=== PATIENT | female | born 1950 | race Caucasian/White ===

== ENCOUNTER → 2016-11-29 | Outpatient (CLI) | payer OTHER ==
[~2016-11-29] MED LIST: CEFAZOLIN 2 GM/DEXTROSE/100 ML BAG IV ONE
--- NOTE | 2016-11-29 22:13 | DX ---
DEXA Bone Mineral Densitometry Clinical Indications: Previous osteopenia, on thyroid medication, with history of left wrist fractur e. Technique: Bone Mineral Densitometry (BMD) by Dual Energy X-Ray Absorptiometry (DEXA) was performed utilizing the Stockpile scanner. The lumbar spine was evaluated in the AP projection. Both hips and the right forearm were evaluated in the AP projection. Images were reviewed for spinal fracture . AP Lumbar Spine: Vertebral bodies of L1, L2, L3, and L4 were assessed. BMD: 1.048 gm/cm2. T-score: -1.2 SD. Z-score: 0.2 SD. This represents a change of -3.8% compared to 2013. AP Left Hip: Neck BMD: 0.845 gm/cm2. T-score: -1.4 SD. Z-score: 0.1 SD. This is a change of -0.8% compared to 2013. AP Right Hip: Neck BMD: 0.903 gm/cm2. T-score: -1.0 SD. Z-score: 0.5 SD. This is a change of -2.8% compared to 2013. AP Right Forearm, 11/23: BMD: 0.850 gm/cm2. T-score: -0.3 SD. Z-score: 1.4 SD. This is a change of +1.1% compared to 2013. Vertebral Fracture Assessment: No significant fracture deformity. Conclusion: Considering the lowest measured site, the patient is osteopenic. The ten year risk for any major osteoporotic fracture is 15% and for a hip fracture is 1.8%. Any bone loss in this patient is probably related to aging or estrogen deficiency. To prevent osteop orosis and to promote bone density, consider the following recommendations: 1. Pursue a regular regimen of weightbearing and muscle strengthening exercises in order to reduce t he risk of falls and fracture (as tolerated by the patient's general medical condition). 2. Ensure that total daily calcium intake is at least 1500 mg (diet plus supplements). 3. Check serum hydroxy vitamin D3 (normal >30ng/ml). 4. Ensure daily intake of vitamin D is 800 international units. 5. Consider follow-up DEXA scan in two years to assess the rate of bone loss in this patient. 6. Consider excluding common secondary causes of bone loss. Useful laboratory tests include CBC, TS H, calcium, phosphorous, albumin, creatinine, alkaline phosphatase, PTH, serum electrophoresis (SPEP or UPEP), antitissue transglutaminase antibody levels (celiac disease), hydroxy vitamin D3, and 24-ho ur urine calcium.
== END ==
LOC: FIMAGING 10:32
PROVIDERS: ATTEND Internal Medicine
DX: Z13.820 Encounter for screening for osteoporosis (principal); M85.80 Other specified disorders of bone density and structure, unspecified site
CPT/HCPCS: J0690

== ENCOUNTER → 2017-10-11 | Outpatient (CLI) | payer OTHER, MEDICARE | LOC: FIMAGING 09:57 | PROVIDERS: ATTEND Internal Medicine | DX: N83.202 Unspecified ovarian cyst, left side (principal); R14.0 Abdominal distension (gaseous); R53.83 Other fatigue ==

== ENCOUNTER → 2017-10-17 | Outpatient (CLI) | payer OTHER, MEDICARE ==
--- NOTE | 2017-10-18 02:22 | CPR ---
[f rep st] NONINVASIVE CARDIAC PROCEDURE REPORT DATE OF PROCEDURE: 10/17/2017 PROCEDURE: Exercise nuclear stress test. INDICATION: The patient is a 67-year-old female who presents with fatigue and dyspnea on exertion. She has also been noted to have hypoxia and bradycardia during surgery as well as post surgery. She denies any history of hypertension, hyperlipidemia, diabetes, ongoing tobacco use or premature family history of coronary disease. DESCRIPTION OF PROCEDURE: Consent was obtained and the patient was placed on continuous telemetry. Her resting EKG reveals normal sinus rhythm with a heart rate of 69 beats per minute. This is a allegra schemic EKG. She exercised on the treadmill for 7 minutes without any associated symptoms. She deve loped T-wave flattening diffusely with initial exertion which persisted throughout the study. She re mained in normal sinus rhythm. Her blood pressure at rest was 114/80 and increased to 132/78 with ex ertion. Her blood pressure returned quickly to baseline in the recovery phase. PLAN: Equivocal exercise treadmill test. Await nuclear images. /[id number]/MODL
== END ==
LOC: FIMAGING 13:44
PROVIDERS: ATTEND Internal Medicine
DX: R06.02 Shortness of breath (principal); R09.02 Hypoxemia
CPT/HCPCS: 78452; 93017; A9500

== ENCOUNTER → 2017-11-02 | Outpatient (CLI) | payer OTHER, MEDICARE | LOC: FIMAGING 09:36 | PROVIDERS: ATTEND Internal Medicine | DX: Z12.31 Encounter for screening mammogram for malignant neoplasm of breast (principal); Z80.3 Family history of malignant neoplasm of breast | CPT/HCPCS: G0202 ==

== ENCOUNTER → 2018-01-04 | Outpatient (CLI) | payer OTHER, MEDICARE ==
[~2018-01-04] MED LIST changes: -CEFAZOLIN 2 GM/DEXTROSE/100 ML BAG IV ONE; +GADOBUTROL 10 ML VIAL IVP ONE
== END ==
LOC: FIMAGING 13:46
PROVIDERS: ATTEND Internal Medicine
DX: R14.0 Abdominal distension (gaseous) (principal); I86.2 Pelvic varices; N83.202 Unspecified ovarian cyst, left side; R22.1 Localized swelling, mass and lump, neck
CPT/HCPCS: 72197; 76536; A9585

== ENCOUNTER → 2019-01-02 | Outpatient (CLI) | payer OTHER | LOC: FIMAGING 12:48 | PROVIDERS: ATTEND Internal Medicine | DX: Z13.820 Encounter for screening for osteoporosis (principal); M85.89 Other specified disorders of bone density and structure, multiple sites; Z78.0 Asymptomatic menopausal state ==